=== PATIENT | male | born 1955 | race Hispanic/Latino ===

== ENCOUNTER → 2020-04-29 | Outpatient (CLI) | payer MEDICARE | END | disposition home or self-care (01) | LOC: RAH 09:04 | PROVIDERS: ATTEND Urology | DX: N20.0 Calculus of kidney (principal); M41.86 Other forms of scoliosis, lumbar region | CPT/HCPCS: 74018; 76100 ==

== ENCOUNTER 2020-05-24 07:46 | Day surgery (SDC) | payer MEDICARE ==
[2020-05-20 11:21] LABS: HEMATOCRIT 38.7 % (42-54); MEAN CORPUSCULAR HEMOGLOBIN 31.7 pg (27.0-33.0); MEAN CORPUSCULAR HGB CONC 34.4 g/dL (32.0-36.0); MEAN CORPUSCULAR VOLUME 92.1 fL (79-99); RED BLOOD CELL COUNT(AUTO) 4.2 MIL/uL (4.50-6.20); RED CELL DISTRIBUTION WIDTH 12.8 % (11.0-15.5); WHITE BLOOD COUNT (AUTO) 5.1 K/uL (4.8-10.8)
[2020-05-20 11:29] LABS: APPEARANCE,URINE Clear (CLEAR); BILIRUBIN,URINE Negative (NEGATIVE); COLOR,URINE Yellow (YELLOW); GLUCOSE, URINE (UA) Negative (NEGATIVE); KETONES,URINE Negative (NEGATIVE); LEUKOCYTE ESTERASE ,URINE Negative (NEGATIVE); NITRATE,URINE Negative (NEGATIVE); OCCULT BLOOD,URINE Negative (NEGATIVE); PROTEIN,URINE Negative (NEGATIVE); UROBILINOGEN,URINE 0.2 mg/dL (0.2-1.0)
[2020-05-20 11:44] LABS: ALBUMIN 3.9 g/dL (3.5-5.0); BILIRUBIN,TOTAL 0.4 mg/dL (0.2-1.0); CREATININE 0.8 mg/dL (0.5-1.5); POTASSIUM 4.5 mmol/L (3.5-5.1)
[2020-05-20 11:47] LABS: INR 1.01 (0.85-1.15)
[2020-05-20 11:48] LABS: PARTIAL THROMBOPLASTIN TIME 28.3 SEC (26.3-35.5)
[2020-05-20 13:00] VITALS: BP 139/79
[~2020-05-24] VITALS: Ht 177.8 cm; Wt 104.3 kg
[2020-05-24] VITALS (18 sets, daily range): BP systolic 105–153; BP diastolic 65–88
[~2020-05-24 07:46] MED LIST: CEFAZOLIN SODIUM 1 GM VIAL IVP SCH; OMEP40CA21 PO; ROSU10TA28 PO; TELM1TAB32 PO
[2020-05-24] MEDS: LACTATED RINGERS 1000ML 1,000 ML IV SCH ×2 (08:30→10:25)
[2020-05-24] MEDS ORDERED: NEOSTIGMINE 5MG/5ML SYR IV ONE (09:05)
[2020-05-24] MEDS ORDERED: DEXAMETHASONE SOD PHOSPHATE 10MG/ML 1ML VIAL ONE (09:05)
[2020-05-24] MEDS ORDERED: PROPOFOL 10 MG/ML 20ML VIAL IV ONE ×2 (09:05→10:17)
[2020-05-24] MEDS ORDERED: ROCURONIUM 10MG/1ML SYR 10 MG/ML ML ONE (09:05)
[2020-05-24] MEDS ORDERED: LIDOCAINE PF 100MG/5ML (2%) SYRINGE 5ML ONE ×2 (09:05→09:07)
[2020-05-24] MEDS ORDERED: MIDAZOLAM HCL 1 MG/ML 2ML VIAL ONE (09:05)
[2020-05-24] MEDS ORDERED: SUCCINYLCHOLINE 200MG/10ML SYR ONE (09:05)
[2020-05-24] MEDS ORDERED: FENTANYL CITRATE PF 50 MCG/1 ML 2ML VIAL ONE (09:05)
[2020-05-24] MEDS ORDERED: GLYCOPYRROLATE 1 MG/5 ML SYRINGE ONE (09:05)
== END 2020-05-24 12:10 | disposition home or self-care (01) ==
LOC: DAH 07:46
PROVIDERS: ATTEND Urology
DX: N20.0 Calculus of kidney (principal); Z20.822 Contact with and (suspected) exposure to COVID-19; I10 Essential (primary) hypertension; E78.5 Hyperlipidemia, unspecified; E78.00 Pure hypercholesterolemia, unspecified; E66.9 Obesity, unspecified; Z90.49 Acquired absence of other specified parts of digestive tract; Z79.899 Other long term (current) drug therapy; Z98.890 Other specified postprocedural states; Z79.01 Long term (current) use of anticoagulants
CPT/HCPCS: 36415; 50590; 71046; 74018; 80053; 81003; 85027; 85610; 85730; 87088; 93005; A4215; A4221; A4222; A4223; A4663; A6260; C9803; J0330; J0690; J1100; J2001 ×2; J2250; J2704 ×2; J2710; J3010; J3490; J7120 ×3; U0003

== ENCOUNTER → 2020-06-09 | Outpatient (CLI) | payer MEDICARE ==
[~2020-06-09] MED LIST changes: -CEFAZOLIN SODIUM 1 GM VIAL IVP SCH; +OMEP40CA13 PO; -OMEP40CA21 PO
== END | disposition home or self-care (01) ==
LOC: RAH 14:37
PROVIDERS: ATTEND Urology
DX: N20.0 Calculus of kidney (principal)
CPT/HCPCS: 74018; 76100